=== PATIENT | female | born 1955 | race Caucasian/White ===

== ENCOUNTER 2016-02-23 14:56 | Emergency (ER) | payer BC ==
[2016-02-23] MEDS ORDERED: Ketorolac INJ* 30 MG/ML 1 ML VIAL IV PUSH ONE (15:03)
[2016-02-23] MEDS ORDERED: Ondansetron INJ* 2 MG/ML VIAL IV ONE (15:04)
[2016-02-23] MEDS ORDERED: NS 0.9% 1000 ML* 1,000 ML IV ONE (15:08)
--- NOTE | 2016-02-23 15:27 | UC ---
Complaint Female HPI - HPI Summary HPI Summary: "kidney stone". Has had several through the years, documented on CT scan. Has seen Dr. Martino. All have passed on their own. Last one in 2013. Today around 10am she had sudden onset of right flank pain, caused nausea and vomiting. Pain is typical of her kidney stones. Can't get comfortable. Hurts more to lie still , feels better to pace around. Multiple episodes of vomiting. - History Of Current Complaint Stated Complaint: RIGHT SIDE ABD PAIN, VOMITING Time Seen by Provider: 02/23/16 15:03 Hx Obtained From: Patient Hx Last Menstrual Period: n/a Onset/Duration: Sudden Onset, Lasting Hours - 5.5 Timing: Constant Severity Initially: Moderate Severity Currently: Severe Character: Sharp, Colicy Aggravating Factor(s): Nothing Alleviating Factor(s): Nothing Associated Signs And Symptoms: Positive: Back Pain - right flank, Nausea, Vomiting(# Of Episodes =) - 5 or 6. Negative: Fever, Vaginal Bleeding/Discharge , Vaginal Discharge Related Hx: Similar Episode/Dx as: - kidney stone, last in 2013 on right side, passed on its own - Risk Factors Ectopic Risk Factor: Negative Ovarian Torsion Risk Factor: Negative - Allergies/Home Medications Allergies/Adverse Reactions: Allergies Allergy/AdvReac Type Severity Reaction Status Date / Time Codeine Allergy Severe Hives, rash Verified 01/07/14 23:02 [From Tylaprin W/Codeine] Penicillins Allergy Severe hives,rash Verified 01/07/14 23:02 Home Medications: Home Medications Aspirin [Aspirin Adult Low Dose] 81 mg PO DAILY 02/23/16 [History Confirmed 07/04] Atorvastatin* [Lipitor 40 MG*] 40 mg PO 1700 02/23/16 [History Confirmed ] Clopidogrel Bisulfate [Plavix] 75 mg PO DAILY 02/23/16 [History Confirmed ] Lisinopril [Zestril 5 MG-] 5 mg PO DAILY 02/23/16 [History Confirmed 02/23/16] PMH/Surg Hx/FS Hx/Imm Hx Endocrine History Of: Reports: Diabetes Cardiovascular History Of: Reports: Hypertension Denies: Congestive Heart Failure GI/ History Of: Reports: Kidney Stones - sees Urology - Surgical History Surgical History: Yes Surgery Procedure, Year, and Place: - Family History Known Family History: Positive: Hypertension - Social History Occupation: Employed Full-time Alcohol Use: Occasionally Substance Use Type: None Smoking Status (MU): Former Smoker Review of Systems Constitutional: Negative Skin: Negative Eyes: Negative ENT: Negative Respiratory: Negative Cardiovascular: Negative Gastrointestinal: Vomiting Genitourinary: Frequency, Urgency Motor: Negative Neurovascular: Negative Musculoskeletal: Negative Neurological: Negative Psychological: Negative All Other Systems Reviewed And Are Negative: Yes Physical Exam Triage Information Reviewed: Yes Appearance: Well-Nourished, Pain Distress - retching, looks like she is in a lot of pain, rocking back and forth, holding right flank Eye Exam: Normal ENT: Positive: Normal ENT inspection, Hearing grossly normal Neck exam: Normal Neck: Positive: Supple Respiratory Exam: Normal Respiratory: Positive: Lungs clear Cardiovascular Exam: Normal Abdomen Description: Positive: Soft, CVA Tenderness (R) - moderate. Negative: Distended, Guarding, Hernia @, Hepatomegaly, McBurney's Point Tenderness, Peritoneal Signs, Pulsatile Mass Musculoskeletal Exam: Normal Neurological Exam: Normal Psychological Exam: Normal Skin Exam: Normal Re-Evaluation - Re-Evaluation First Eval Re-Evaluation Time: 17:12 Change: Improved Comment: passed a huge stone with urine, about 5 or 6 mm diam. Feels much better Complaint Female Dx - Differential Dx/Diagnosis Differential Diagnosis/HQI/PQRI: Renal Colic, Ureteral Stone Provider Diagnoses: kidney stone Discharge - Discharge Plan Condition: Stable Disposition: HOME Prescriptions: HYDROcodone/ACETAMIN 5-325 MG* [[place] 5-325 TAB*] 1 - 2 tab PO Q4H PRN #14 tab MDD 6 tab PRN Reason: Pain Ondansetron ODT TAB* [Zofran Odt TAB*] 4 mg PO Q8H PRN #4 tab.odt PRN Reason: Nausea Patient Education Materials: Kidney Stones (ED) Forms: *Work Release Referrals: No Primary Care Phys,NOPCP [Primary Care Provider] -
[2016-02-23 17:30] VITALS: BP 152/72
== END 2016-02-23 17:32 | disposition home or self-care (01) ==
LOC: UCCORT 14:56
DX: N20.0 Calculus of kidney (principal); Z88.5 Allergy status to narcotic agent; Z88.0 Allergy status to penicillin; Z79.82 Long term (current) use of aspirin; Z79.02 Long term (current) use of antithrombotics/antiplatelets; E11.9 Type 2 diabetes mellitus without complications; I10 Essential (primary) hypertension; Z87.891 Personal history of nicotine dependence
CPT/HCPCS: 96361; 96374; 96375; 99212; G0463; J1885; J2405

== ENCOUNTER 2019-05-03 12:03 | Emergency (ER) | payer BC, OTHER ==
--- OUTSIDE RECORDS SUMMARY | 2019-05-03 12:18 | XMS REPORT | Continuity of Care Document ---
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 Onset: 02/05/2017 Sepsis due to Escherichia coli Irving Burgos M.D. Onset: 02/05/2017 Acute pyelonephritis Rosemarie Madera M.D. Onset: 02/06/2017 Note: 01/2017 Leukocytosis Rosemarie Madera M.D. Onset: 02/06/2017 [facility] Onset: 02/25/2017 Benign essential hypertension Irving Burgos M.D. Onset: 02/05/2017 Coronary atherosclerosis [facility] Onset: 02/25/2017 Note: SD/stent 2014 Atrial fibrillation and flutter Denia Elmore RPAC Onset: 02/25/2017 Note: 01/2017 Degenerative joint disease involving [facility] Onset: 2017 multiple joints Note: Dorsal/lumbar spine, hips, thumb Urinary tract infectious disease Rosemarie Madera M.D. Onset: 03/04/2017 Type II diabetes mellitus uncontrolled Holly Vazquez MD, PHD Onset: 2018 Paroxysmal atrial fibrillation Holly Vazquez MD, PHD Onset: 06/23/2018 Atrial flutter Holly Vazquez MD, PHD Onset: 06/23/2018 Bradycardia, unspecified Holly Vazquez MD, PHD Onset: 06/23/2018 Dysuria Holly Vazquez MD, PHD Onset: 06/23/2018 Increased frequency of urination Holly Vazquez MD, PHD Onset: 06/23/2018 Cellulitis of left lower limb Holly Vazquez MD, PHD Onset: 06/23/2018 Thoracic and lumbosacral neuritis Holly Vazquez MD, PHD Onset: 06/23/2018 Low back pain Holly Vazquez MD, PHD Onset: 06/25/2018 Encounter for examination and observation Holly Vazquez MD, PHD Onset: 09/2018 following work accident Fall on same level from slipping, tripping Holly Vazquez MD, PHD Onset: and stumbling with subsequent striking against unspecified object, initial encounter Contusion of scalp, subsequent encounter Holly Vazquez MD, PHD Onset: 09/2018 Other fracture of T11-T12 vertebra, Holly Vazquez MD, PHD Onset: 2018 subsequent encounter for fracture with routine healing Edema Holly Vazquez MD, PHD Onset: 06/25/2018 Hematoma Holly Vazquez MD, PHD Onset: 07/23/2018 Cyst of medial meniscus Holly Vazquez MD, PHD Onset: 07/23/2018 Trochanteric bursitis Holly Vazquez MD, PHD Onset: 07/23/2018 Hip joint painful on movement Holly Vazquez MD, PHD Onset: 07/23/2018 Polyneuropathy Holly Vazquez MD, PHD Onset: 10/16/2018 Adjustment disorder with depressed mood Holly Vazquez MD, PHD Onset: 10/16 Social History Type Date Description Comments Sex Unknown Tobacco Use Start: Unknown Never Smoked Cigarettes ETOH Use Occasionally consumes alcohol Recreational Drug Use Never Used Drugs Tobacco Use Start: Unknown Patient denies history of smoking Smoking Status Reviewed: 03/11/19 Patient denies history of smoking Exercise Type/Frequency Exercises regularly Allergies, Adverse Reactions, Alerts Active Allergies Reaction Severity Comments Date Penicillins 01/20/2017 Codeine 01/20/2017 Medications Active Medications SIG Qnty Indications Ordering Date Provider Dalerelkrystal take one tablet 90tabs I48.0 Holly Vazquez, 03/18/2019 20mg Tablets by mouth every MD, PHD day. Onetouch Verio use 1 strip 2-3 300units E11.65 George Holly, 02/10/2019 times a day as MD, PHD Strips directed Z79.4 Lantus Solostar start with 40 units 15ml E11.65 George Holly, 2018 inj sq once a day, MD, PHD 100Unit/ML Solution increase by 1 unit Pen-Inject a day until morning sugar to be 120. D3 Maximum Strength 1 cap by mouth 90caps F43.21 George Holly, 2018 every day with food , PHD 5000Unit Capsules Nac 600 1 cap by mouth 90caps F43.21 George Holly, 10/16/2018 600mg Capsules three times a day , PHD after meals Metformin HCL ER 1-2 tabs by mouth 180tabs E11.65 George Holly, 2018 500mg every morning , PHD Tablets ER 24HR Voltaren 1-2 g apply to 100gm George Holly, 09/16/2018 1% Gel affected area four , PHD times a day as needed Freestyle Lancets to test 1-3 times a 100units George Holly, 2018 Misc day as directed. , PHD Alcohol Swabs With to use 1-3 times a 100units George Holly, 2018 Benzocaine day before lancet , PHD 6-70% Pads as directed. H24-Yunoaj 1 tab by mouth 90units E11.65 George Holly, 06/23/2018 1mg Chewtabs every day wc , PHD Vitamin D3 Maximum 1 by mouth every 90caps E11.65 Holly Vazquez, 2018 Strength day , PHD 5000Unit Capsules Arnicare apply to affected 75g M54.14 Holly Vazquez, 06/23/2018 Gel area four times a , PHD day pain, swelling, bruising Pen [place] 05/03" 1 daily for use 100units E11.65 Holly Vazquez, 2018 31G X with Dinorah ROMERO, PHD 5 mm Misc Insulin Pen Cartia XT 1 by mouth every 90caps I10 Yang Turner 03/24/2018 300mg Caps ER day Tevin Jansen, FACC 24HR I48.0 Atorvastatin Calcium 1 by mouth every 90tabs Denia Mccrary, 01/07/2018 80mg day at bedtime [employer] Tablets Omeprazole take 1 capsule 90caps Denia Mccrary, 04/02/[address] once daily [employer] Lancets Micro Thin 33G for use 1 time a 100units E11.65 Javy Cottrell, Thin 33G day M.DJaciel Misc Aspirin Ec Low Dose Once Daily Unknown 81mg Tablets Metoprolol Succinate ER take 1/2 tablet 90tabs I48.0 Holly Vazquez, 25mg by mouth once , PHD Tablets ER 24HR daily if heart rate above 90 Cyclobenzaprine HCL 1-2 tab by mouth 60tabs Holly Vazquez, 5mg Tablets at bedtime as , PHD needed for muscle spasm Urocit-K 15 1 by mouth qod Unknown 15Meq (1620 mg) Tablets ER History Medications Xarelto Starter 15mg by mouth twice 51units I48.0 Holly Vazquez, 2019 - Pack a day for 3 weeks, , PHD 03/18/2019 15&20mg then 20mg once a day TBPK thereafter. Immunizations CPT Code Status Date Vaccine Lot # U-Flu Given 03/17/2019 Influenza,Unspecified [id number] Given Unknown Influenza Virus Vaccine, Quadrivalent, 36 Mos+, .5ML Vital Signs Date Vital Result Comment 04/30/2019 10:55am Height 63.5 inches 5'3.50" Weight 212.25 lb BMI (Body Mass Index) 37.0 kg/m2 BSA (Body Surface Area) 1.99 m2 [place] body weight in kilograms 53 kg 03/11/2019 2:45pm BP Systolic 144 mmHg BP Diastolic 84 mmHg Body Temperature 98.4 F Heart Rate 83 /min Respiratory Rate 18 /min Height 66 inches 5'6" Weight 209.00 lb BMI (Body Mass Index) 33.7 kg/m2 BSA (Body Surface Area) 2.04 m2 [place] body weight in kilograms 59 kg O2 % BldC Oximetry 96 % Results Test Acquired Date Facility Test Result H/L Range Note Urine Dipstick 02/03/2019 [facility] Ua Color yellow Yellow Ua Clarity clear Clear Ua Leuko negative Negative Ua Nitrite negative Negative Ua Urobilinogen 0.2 0.2 - 1.0 E.U./dL Ua Protein negative Negative Ua PH 5.5 Low 6.5-7.5 Ua Blood negative Negative Ua Specific [place] 1.025 1.010-1.030 Ua Ketones negative Negative Ua Bilirubin negative Negative Ua Glucose 3+ High Negative Procedures Description No Information Available Medical Devices Description No Information Available Encounters Type Date Location Provider Dx Diagnosis Office Visit 03/11/2019 Family Medicine Holly Vazquez, E11.65 Type 2 diabetes 2:30p Francisco Javier Beal MD, PHD mellitus with hyperglycemia I10 Essential (primary) hypertension I48.0 Paroxysmal atrial fibrillation G62.9 Polyneuropathy, unspecified Office Visit 02/03/2019 1:00p Family Medicine George E11.65 Type 2 diabetes Francisco Javier Barrera MD, mellitus with PHD hyperglycemia R30.0 Dysuria K21.9 Gastro-esophageal reflux disease without esophagitis I25.10 [place] heart disease [place] coronary artery w/o ang pctrs I48.0 Paroxysmal atrial fibrillation Assessments Date Code Description Provider 03/11/2019 E11.65 Type 2 diabetes mellitus with Holly Vazquez MD, PHD hyperglycemia 03/11/2019 I10 Essential (primary) hypertension Holly Vazquez MD, PHD 03/11/2019 I48.0 Paroxysmal atrial fibrillation Holly Vazquez MD, PHD 03/11/2019 G62.9 Polyneuropathy, unspecified Holly Vazquez MD, PHD 02/03/2019 E11.65 Type 2 diabetes mellitus with Denia Mccrary, [employer] hyperglycemia 02/03/2019 E11.65 Type 2 diabetes mellitus with Holly Vazquez MD, PHD hyperglycemia 02/03/2019 R30.0 Dysuria Denia Mccrary, [employer] 02/03/2019 R30.0 Dysuria Holly Vazquez MD, PHD 02/03/2019 K21.9 Gastro-esophageal reflux disease without Denia Mccrary, [employer] esophagitis 02/03/2019 K21.9 Gastro-esophageal reflux disease without Holly Vazquez MD, PHD esophagitis 02/03/2019 I25.10 Atherosclerotic heart disease [place] Denia Mccrary, [facility] [place] coronary artery without angina pectoris 02/03/2019 I25.10 Atherosclerotic heart disease of [place] Holly Vazquez MD, PHD coronary artery with 02/03/2019 I48.0 Paroxysmal atrial fibrillation Holly Vazquez MD, PHD Plan of Treatment Future Appointment(s):06/10/2019 11:30 am - Holly Vazquez MD, PHD at [facility] Functional Status Functional Condition Comment Date Status Independent with all ADL's Active Mental Status Description No Information Available Referrals Refer to Reason for Referral Status Appt Date Yung Espinosa MD Already seeing Dr. Murray at [facility] in [place] for Closed Work Comp Second opinion. Need records for work comp paperwork, treatment plan, etc. [address] [place] [address] [phone]
--- OUTSIDE RECORDS SUMMARY | 2019-05-03 12:18 | XMS REPORT | Continuity of Care Document ---
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 Onset: 02/05/2017 Sepsis due to Escherichia coli Irving Burgos M.D. Onset: 02/05/2017 Acute pyelonephritis Rosemarie Madera M.D. Onset: 02/06/2017 Note: 01/2017 Leukocytosis Rosemarie Madera M.D. Onset: 02/06/2017 Hyperlipidemia Denia Elmore [facility] Onset: 02/25/2017 Benign essential hypertension Irving Burgos M.D. Onset: 02/05/2017 Coronary atherosclerosis Denia Elmore [facility] Onset: 02/25/2017 Note: [place]/stent 2014 Atrial fibrillation and flutter Denia Elmore [facility] Onset: 02/25/2017 Note: 01/2017 Degenerative joint disease involving Denia Elmore [facility] Onset: 2017 multiple joints Note: Dorsal/lumbar spine, [...] Reviewed: 03/11/19 Patient denies history of smoking Allergies, Adverse Reactions, Alerts Active Allergies Reaction Severity Comments Date Penicillins 01/20/2017 Codeine 01/20/2017 Medications Active Medications SIG Qnty Indications Ordering Date Provider Xarelto Starter Pack 15mg by mouth 51units I48.0 Holly Vazquez, 2019 twice a day for 3 , PHD 15&20mg TBPK weeks, then 20mg once a day thereafter. Onetouch Verio use 1 strip 2-3 300units E11.65 George Holly, 02/10/2019 times a day as MD, PHD Strips directed Z79.4 Lantus Solostar start with 40 units 15ml E11.65 GeorgeSarwata, 2018 inj sq once a day, , PHD 100Unit/ML Solution increase by 1 unit Pen-Inject a day until morning sugar to be 120. D3 Maximum Strength 1 cap by mouth 90caps F43.21 George Holly, 2018 every day with food , PHD 5000Unit Capsules Nac 600 1 cap by mouth 90caps F43.21 George, Holly, 10/16/2018 600mg Capsules three times a day , PHD after meals Metformin HCL ER 1-2 tabs by mouth 180tabs E11.65 George, Holly, 2018 500mg every morning , PHD Tablets ER 24HR Voltaren 1-2 g apply to 100gm Holly Vazquez, 09/16/2018 1% Gel affected area four , PHD times a day as needed Freestyle Lancets to test 1-3 times a 100units George Holly, 2018 Misc day as directed. , PHD Alcohol Swabs With to use 1-3 times a 100units George Holly, 2018 Benzocaine day before lancet , PHD 6-70% Pads as directed. V51-Ldpzui 1 tab by mouth 90units E11.65 George Holly, 06/23/2018 1mg Chewtabs every day wc , PHD Vitamin D3 Maximum 1 by mouth every 90caps E11.65 Holly Vazquez, 2018 Strength day , PHD 5000Unit Capsules Arnicare apply to affected 75g M54.14 Holly Vazquez, 06/23/2018 Gel area four times a , PHD day pain, swelling, bruising Pen [place] 05/03" 1 daily for use 100units E11.65 Holly Vazquez, 2018 31G X with Dinorah ROMERO, PHD 5 mm Misc Insulin Pen Cartia XT 1 by mouth every 90caps I10 Yang Turner 03/24/2018 300mg Caps ER day Tevin Jansen, FACC 24HR I48.0 Atorvastatin Calcium 1 by mouth every 90tabs Denia Mccrary, 01/07/2018 80mg day at bedtime [employer] Tablets Omeprazole take 1 capsule 90caps Denia Mccrary, 04/02/[address] once daily [employer] Lancets Micro Thin 33G for use 1 [...] 15Meq (1620 mg) Tablets ER History Medications Trulicity 1 inj subcutaneous 2ml E11.65 George, 10/16/2018 - every week MD Holly, 02/03/2019 0.75mg/0.5ML PHD Solution Pen-Inject B12 Fast Dissolve 1 tab by mouth 90tabs F43.21 George, 10/16/2018 - every day MD Holly, 02/03/2019 5000mcg Tablets PHD Dispers Gabapentin 1-2 tab by mouth at 60caps G62.9 George, 10/16/2018 - 300mg bedtime MD Holly, 03/11/2019 Capsules PHD Immunizations CPT Code Status Date Vaccine Lot # [id number] Given Unknown Influenza Virus Vaccine, Quadrivalent, 36 Mos+, .5ML Vital Signs Date Vital Result Comment 03/11/2019 2:45pm BP Systolic 144 mmHg BP Diastolic 84 mmHg Body Temperature 98.4 F Heart Rate 83 /min Respiratory Rate 18 /min Height 66 inches 5'6" Weight 209.00 lb BMI (Body Mass Index) 33.7 kg/m2 BSA (Body Surface Area) 2.04 m2 [place] body weight in kilograms 59 kg O2 % BldC Oximetry 96 % 02/03/2019 1:07pm BP Systolic 151 mmHg BP Diastolic 74 mmHg Body Temperature 98.4 F Heart Rate 74 /min Respiratory Rate 18 /min Height 66 inches 5'6" Weight 210.00 lb BMI (Body Mass Index) 33.9 kg/m2 BSA (Body Surface Area) 2.04 m2 [place] body weight in kilograms 59 kg O2 % BldC Oximetry 98 % Results Test Acquired Date Facility Test Result H/L Range Note Urine Dipstick 02/03/2019 [facility] Color yellow Yellow Ua Clarity clear Clear Ua Leuko negative Negative Ua Nitrite negative Negative Ua Urobilinogen 0.2 0.2 - 1.0 E.U./dL Ua Protein negative Negative Ua PH 5.5 Low 6.5-7.5 Ua Blood negative Negative Ua Specific [place] 1.025 1.010-1.030 Ua Ketones negative Negative Ua Bilirubin negative Negative Ua Glucose 3+ High Negative Glycohemoglobin 2018 [facility] Glycohemoglobin 8.1 % High 4.2-6.3 1, [address] (A1c) [place], [place] [id number] [phone] eAG 186 mg/dL Comprehensive Metabolic 2018 [facility] Glucose 211 mg/dL High 74-[address] [place], [place] [id number] [phone] BUN 22 mg/dL High 7-18 Creatinine 1.0 mg/dL Normal 0.6-1.3 Glom Filtration Rate, Estimate 60 mL/min >60 If >60 mL/min >60 3 BUN/Creat 22.0 ratio Sodium 134 mmol/L Low 136-145 Potassium 4.4 mmol/L Normal 3.5-5.1 Chloride 101 mmol/L Normal 98-107 Carbon Dioxide 24 mmol/L Normal 21-32 Anion Gap 9 mEq/L Normal 8-16 Calcium 9.5 mg/dL Normal 8.5-10.1 Total Protein 8.5 g/dL High 6.4-8.2 Albumin 3.9 g/dL Normal 3.4-5.0 Globulin 4.6 g/dL High 1.9-4.3 Alb/Glob 0.8 ratio Bilirubin,Total 0.5 mg/dL Normal 0.2-1.0 Sgot/Ast 9 U/L Low 15-37 4 SGPT/Alt 21 U/L Normal 12-78 Alkaline Phosphatase 54 U/L Normal 45-117 LDL Cholesterol 2018 [facility] Cholesterol 290 mg/dL High <200 [address] [place] [address] [phone] Triglycerides 274 mg/dL High <150 6 HDL Cholesterol 56 mg/dL >40 7 LDL-Cholesterol 179 mg/dL < 100 8 Laboratory test 2018 [facility] Vitamin 36.1 30.0-100.[address] D,25-Hydroxy ng/[place] [address] [phone] Thyroid Stim Hormone 0.64 uIU/mL Normal 0.30-4.20 Microalbumin,Random 10/16/2018 [facility] Microalbumin,Urine 44.8 < 20.[address] mg/[place] [address] [phone] 1 N20.0 E11.65 2 Elevated levels of HbA1c suggest the need for more aggressive treatment of glycemia. The [place] [employer] recommends that a primary goal of therapy should be a HbA1c of <7% and that physicians should re-evaluate the treatment regimen in patients with HbA1c values consistently >8%. 3 Note: Persistent reduction for 3 months or more in an eGFR <60 mL/min/1.73 m2 defines CKD. Patients with eGFR values >/=60 mL/min/1.73 m2 may also have CKD if evidence of persistent proteinuria is present. The original MDRD equation for estimated GFR is not valid for patients less than 18 years of age. Additional information may be found at www.kdoqi.org. 4 Values below the stated reference ranges of AST and ALT can be seen in normal populations. Clinical correlation is suggested. 5 Reference Guidelines*: Desirable: ........... < 200 mg/dL Borderline High: ..... 200-239 mg/dL High: ................ >= 240 mg/dL * The National Cholesterol Education Program (NCEP) 6 Reference Guidelines*: Normal: ............. < 150 mg/dL Borderline High: .... 150-199 mg/dL High: ............... 200-499 mg/dL Very High: .......... > 500 mg/dL * Source: National Cholesterol Education Program (NCEP) 7 Reference Guidelines*: Low HDL: ..... < 40 mg/dL Normal: ..... 40-60 mg/dL Desirable: ... > 60 mg/dL *The National Cholesterol Education Program(NCEP) 8 Reference Guidelines*: Optimal:........... <100 mg/dL Near Optimal....... 100-129 mg/dL Borderline High.... 130-159 mg/dL High............... 160-189 mg/dL Very High.......... >=190 mg/dL * Source: National Cholesterol Education Program (NCEP) 9 Vitamin D deficiency has been defined by the [place] of [employer] and an Endocrine Society practice guideline as a level of serum 25-OH vitamin D less than 20 ng/mL (1,2). The Endocrine Society went on to further define vitamin D insufficiency as a level between 21 and 29 ng/mL (2). 1. IOM ([place] of [employer]). 2010. Dietary reference intakes for calcium and D. [place]: The National Academies Press. 2. Madhavi MF, [place], Stephanie-Morris HEAD, et al. Evaluation, treatment, and prevention of vitamin D deficiency: an Endocrine Society clinical practice guideline. JCEM. 2010; 96(7):1911-30. Performed at: [facility] [address] [id number] Eyeglass Frame Truer: Ruthy Pitts MD, Phone: [phone] 10 E11.65 Procedures Description No Information Available Medical Devices Description No Information Available Encounters Type Date Location Provider Dx Diagnosis Office Visit 03/11/2019 [facility] Holly Vazquez, E11.65 Type 2 diabetes 2:30p Francisco Javier Beal MD, PHD mellitus with hyperglycemia I10 Essential (primary) hypertension I48.0 Paroxysmal atrial fibrillation G62.9 Polyneuropathy, unspecified Office Visit 02/03/2019 1:00p [facility] George E11.65 Type 2 diabetes Francisco Javier Barrera MD, mellitus with PHD hyperglycemia R30.0 Dysuria K21.9 Gastro-esophageal reflux disease without esophagitis I25.10 Athscl heart disease of [place] coronary artery w/o ang pctrs I48.0 Paroxysmal atrial fibrillation Office Visit 10/16/2018 1:00p [facility] George E11.65 Type 2 diabetes Francisco Javier Barrera MD, mellitus with PHD hyperglycemia I10 Essential (primary) hypertension I25.10 Athscl heart disease of [place] coronary artery w/o ang pctrs R00.1 Bradycardia, unspecified I48.0 Paroxysmal atrial fibrillation G62.9 Polyneuropathy, unspecified F43.21 Adjustment disorder with depressed mood Assessments Date Code Description Provider 03/11/2019 E11.65 Type 2 diabetes mellitus with Holly Vazquez MD, PHD hyperglycemia 03/11/2019 I10 Essential (primary) hypertension Holly Vazquez MD, PHD 03/11/2019 I48.0 Paroxysmal atrial fibrillation Holly Vazquez MD, PHD 03/11/2019 G62.9 Polyneuropathy, unspecified Holly Vazquez MD, PHD 02/03/2019 E11.65 Type 2 diabetes mellitus with Denia Mccrary, ZACHARY hyperglycemia 02/03/2019 E11.65 Type 2 diabetes mellitus with Holly Vazquez MD, PHD hyperglycemia 02/03/2019 R30.0 Dysuria Denia Mccrary, [employer] 02/03/2019 R30.0 Dysuria Holly Vazquez MD, PHD 02/03/2019 K21.9 Gastro-esophageal reflux disease without Denia Mccrary, [employer] esophagitis 02/03/2019 K21.9 Gastro-esophageal reflux disease without Holly Vazquez MD, PHD esophagitis 02/03/2019 I25.10 Atherosclerotic heart disease of [place] Denia Mccrary, [employer] coronary artery without angina pectoris 02/03/2019 I25.10 Atherosclerotic heart disease of [place] Holly Vazquez MD, PHD coronary artery with 02/03/2019 I48.0 Paroxysmal atrial fibrillation Holly Vazquez MD, PHD 10/16/2018 E11.65 Type 2 diabetes mellitus with Holly Vazquez MD, PHD hyperglycemia 10/16/2018 I10 Essential (primary) hypertension Holly Vazquez MD, PHD 10/16/2018 I25.10 Atherosclerotic heart disease of [place] Holly Vazquez MD, PHD coronary artery with 10/16/2018 R00.1 Bradycardia, unspecified Holly Vazquez MD, PHD 10/16/2018 I48.0 Paroxysmal atrial fibrillation Holly Vazquez MD, PHD 10/16/2018 G62.9 Polyneuropathy, unspecified Holly Vazquez MD, PHD 10/16/2018 F43.21 Adjustment disorder with depressed mood Holly Vazquez MD, PHD Plan of Treatment Future Appointment(s):06/10/2019 1:00 pm - Holly Vazquez MD, PHD at [facility] Functional Status Functional Condition Comment Date Status Independent with all ADL's Active Mental Status Description No Information Available Referrals Refer to Dr Reason for Referral Status Appt Date Yung Espinosa MD Already seeing Dr. Murray at [facility] in [place] for Created Work Comp Second opinion. Need records for work comp paperwork, treatment plan, etc. [address] [place] [address] [phone]
== END 2019-05-03 12:49 | disposition left against medical advice (07) ==
LOC: UCCORT 12:03
DX: M54.9 Dorsalgia, unspecified (principal); M25.562 Pain in left knee; Z53.21 Procedure and treatment not carried out due to patient leaving prior to being seen by health care provider